=== PATIENT | male | born 1990 | race Caucasian/White ===

== ENCOUNTER 2019-05-01 08:28 | Emergency (ER) | payer SELFPAY ==
[~2019-05-01] VITALS: Ht 177.8 cm; Wt 81.6 kg
--- NOTE | 2019-05-01 08:28 | NUR ---
PT BIBA ALS TO ER BED 10
[2019-05-01 08:31] VITALS: BP 123/81
--- NOTE | 2019-05-01 08:33 | NUR ---
29 y/o M BIBA for seizure. Per EMS, pt cousin heard a thud and witnessed a 2-5 minute tonic/clonic seizure. Per EMS pt has been post-itctal for EMS upon arrival. A&O x4. GCS 15. Vital Signs Stable. Respirations even and unlabored. Per pt he has had one seizure in the past; "a couple years ago". Currently not on any medications. Pt admits to ETOH and Marijuana last night. 20 gauge to left ac established on scene. Waiting for ERMD to evaluate pt. Allergies: NKA Med hx: seizures
[2019-05-01] MEDS ORDERED: NACL 0.9% 500 ML IV ONE (08:45)
[2019-05-01 09:05] LABS: BASOPHILS # (AUTO) 0.1 K/uL (0.00-0.22); EOSINOPHILS % (AUTO) 0.6 % (0.0-4.0); HEMATOCRIT 40.8 % (36-52); HEMOGLOBIN 13.6 g/dL (12.0-18.0); LYMPHOCYTES # (AUTO) 3.1 K/uL (2.0-11.5); LYMPHOCYTES % (AUTO) 43.5 % (20.5-51.1); MEAN CORPUSCULAR HEMOGLOBIN 34 pg (27-31); MEAN CORPUSCULAR HGB CONC 33 g/dL (33-37); MEAN CORPUSCULAR VOLUME 101.1 fL (80-94); MONOCYTES # (AUTO) 0.5 K/uL (0.8-1.0); MONOCYTES % (AUTO) 7.2 % (1.7-9.3); NEUTROPHILS # (AUTO) 3.4 K/uL (1.8-7.7); NEUTROPHILS % (AUTO) 47.7 % (42.2-75.2); PLATELET COUNT (AUTO) 196 K/uL (140-450); RED BLOOD CELL COUNT(AUTO) 4.03 MIL/uL (4.20-6.10); RED CELL DISTRIBUTION WIDTH 12.6 % (11.6-13.7); WHITE BLOOD COUNT (AUTO) 7.1 K/uL (4.8-10.8)
[2019-05-01 09:12] LABS: CARBON DIOXIDE 19.6 mmol/L (21-32); CHLORIDE 95 mmol/L (98-107); CREATININE 1.2 mg/dL (0.7-1.3); GFR ARICAN-AMERICAN 91 mL/min (>90); GLUCOSE 108 mg/dL (74-106); POTASSIUM 3.6 mmol/L (3.5-5.1); SODIUM SERUM 137 mmol/L (136-145); UREA NITROGEN, BLOOD 10 mg/dL (7-18)
--- NOTE | 2019-05-01 09:15 | NUR ---
Dr. Bender evaluating pt at bedside.
[2019-05-01 09:17] LABS: ALBUMIN 4.4 g/dL (3.4-5.0); ASPARTATE AMINOTRANSFERASE 328 U/L (15-37); TOTAL BILIRUBIN 2.8 mg/dL (0.0-1.0)
[2019-05-01] MEDS ORDERED: ONDANSETRON 4 MG/2 ML VIAL IVP ONE (09:25)
[2019-05-01] MEDS ORDERED: LORazepam 2 MG/ML VIAL IVP ONE (09:25)
[2019-05-01] MEDS ORDERED: NACL 0.9% 1,000 ML IV ONE (09:25)
[2019-05-01 09:33] LABS: ACETAMINOPHEN < 0.5 ug/ml (10-30); SALICYLATE < 2.8 mg/dL (2.8-20.0)
--- NOTE | 2019-05-01 10:21 | NUR ---
Pt attempting to provide urine sample.
--- NOTE | 2019-05-01 10:28 | NUR ---
Urine collected and sent to lab
[2019-05-01 10:46] LABS: BARBITURATE, URINE NEG. ng/ml (NEG <=200); BENZODIAZEPINE, URINE NEG. ng/mL (NEG <=200); CANNABINOID, URINE POS. ng/mL (NEG <=50); COCAINE, URINE NEG. ng/mL (NEG <=300); OPIATE, URINE NEG. ng/mL (NEG <=2000); PHENCYCLIDINE SCREEN,URINE NEG. ng/mL (NEG <=25)
--- NOTE | 2019-05-01 10:49 | NUR ---
Pt requesting oral fluids. Dr. Napoleon holman to have ice chips.
--- NOTE | 2019-05-01 11:30 | NUR ---
Pt resting in bed awake and alert. Family at bedside. Will continue to monitor.
[2019-05-01 11:59] VITALS: BP 127/83
--- NOTE | 2019-05-01 11:59 | NUR ---
Patient discharged with v/s stable. Written and verbal after care instructions given and explained. Patient alert, oriented and verbalized understanding of instructions. Ambulatory with steady gait. All questions addressed prior to discharge. ID band removed. Patient advised to follow up with PMD. Rx of Xanax 0.5mg was given. Patient educated on indication of medication including possible reaction and side effects. Opportunity to ask questions provided and answered.
== END 2019-05-01 11:59 | disposition home or self-care (01) ==
LOC: MED 08:28
DX: S00.512A Abrasion of oral cavity, initial encounter (principal); G40.89 Other seizures; X58.XXXA Exposure to other specified factors, initial encounter; Y93.89 Activity, other specified; Y92.89 Other specified places as the place of occurrence of the external cause; Y99.8 Other external cause status
CPT/HCPCS: 36415; 80053; 80305; 85025; 93005; 96374; 96375; 99284; G0480; G0482; J2060; J2405; J7030

== ENCOUNTER 2019-05-17 17:16 | Emergency (ER) | payer SELFPAY ==
[~2019-05-17] VITALS: Ht 190.5 cm; Wt 72.6 kg
--- NOTE | 2019-05-17 17:16 | NUR ---
Patient BIBA ALS, transferred to bed 9. RN evaluating patient at bedside.
[2019-05-17 17:30] VITALS: BP 159/92
--- NOTE | 2019-05-17 17:41 | NUR ---
BIBA FROME HOME FOR POSSIBLE SEIZURE X 30 MINS AGO. PATIENT ALERT,OREITED TO NAME PLACE. FAMILY WITNESS FOR SEIZURE. APPROX 1 MIN, NO FALL. PER EMS IVF 18G LAC. SLIGHTLY BLEEDING AT TOUNGE. MED HX: SEIZURE.
--- NOTE | 2019-05-17 17:44 | NUR ---
Dr. Bender is evaluating the patient at bedside.
--- NOTE | 2019-05-17 17:47 | NUR ---
FAMILY AT BEDSIDE.
[2019-05-17] MEDS ORDERED: MULTIVITAMIN-12 10 ML, THIAMINE 100 MG, FOLIC ACID 1 MG, MAGNESIUM SULFATE 50% 2,000 MG... IV SCH ×10 (17:50→18:03)
[2019-05-17] MEDS ORDERED: LORazepam 2 MG/ML VIAL IVP ONE (17:50)
[2019-05-17 18:20] VITALS: BP 132/89
--- NOTE | 2019-05-17 18:20 | NUR ---
Patient does not wish to proceed with medical care recommended by DR MENESES. Patient given information related to possible complications, up to and including , which could occur as a result of leaving hospital at this time. Patient verbalizes understanding of risks involved leaving against medical advice. Patient has signed AMA form.
== END 2019-05-17 18:20 | disposition left against medical advice (07) ==
LOC: MED 17:16
DX: R56.9 Unspecified convulsions (principal); F17.210 Nicotine dependence, cigarettes, uncomplicated
CPT/HCPCS: 99283; J2060; A9153; J3411; J3475; J3490

== ENCOUNTER 2019-06-14 10:01 | Emergency (ER) | payer OTHER ==
[~2019-06-14] VITALS: Ht 190.5 cm; Wt 78.9 kg
[2019-06-14 10:13] VITALS: BP 153/90
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
[2019-06-14 10:57] LABS: APPEARANCE,URINE HAZY (CLEAR); BILIRUBIN,URINE 1+ (NEGATIVE); BLOOD, URINE NEGATIVE (NEGATIVE); COLOR,URINE YELLOW (YELLOW); LEUKOCYTE ESTERASE ,URINE NEGATIVE (NEGATIVE); NITRITE, URINE NEGATIVE (NEGATIVE); UGLUCOSE NEGATIVE (NEGATIVE)
[2019-06-14 11:01] LABS: BARBITURATE, URINE NEG. ng/ml (NEG <=200); BENZODIAZEPINE, URINE NEG. ng/mL (NEG <=200); CANNABINOID, URINE NEG. ng/mL (NEG <=50); COCAINE, URINE NEG. ng/mL (NEG <=300); OPIATE, URINE NEG. ng/mL (NEG <=2000); PHENCYCLIDINE SCREEN,URINE NEG. ng/mL (NEG <=25)
[2019-06-14 11:03] LABS: BASOPHILS # (AUTO) 0.2 K/uL (0.00-0.22); BASOPHILS % (AUTO) 4.1 % (0.0-2.0); EOSINOPHILS # (AUTO) 0.1 K/uL (0-0.4); EOSINOPHILS % (AUTO) 2.3 % (0.0-4.0); HEMATOCRIT 48.5 % (36-52); HEMOGLOBIN 16.1 g/dL (12.0-18.0); LYMPHOCYTES # (AUTO) 2.5 K/uL (2.0-11.5); LYMPHOCYTES % (AUTO) 48.8 % (20.5-51.1); MEAN CORPUSCULAR HEMOGLOBIN 33 pg (27-31); MEAN CORPUSCULAR HGB CONC 33 g/dL (33-37); MEAN CORPUSCULAR VOLUME 99.1 fL (80-94); MONOCYTES # (AUTO) 0.3 K/uL (0.8-1.0); MONOCYTES % (AUTO) 5.9 % (1.7-9.3); NEUTROPHILS % (AUTO) 38.9 % (42.2-75.2); PLATELET COUNT (AUTO) 285 K/uL (140-450); RED BLOOD CELL COUNT(AUTO) 4.89 MIL/uL (4.20-6.10); RED CELL DISTRIBUTION WIDTH 12.7 % (11.6-13.7); WHITE BLOOD COUNT (AUTO) 5.1 K/uL (4.8-10.8)
[2019-06-14 11:17] LABS: RBC,URINE NONE SEEN /HPF (0-5); WBC,URINE 0-5 /HPF (0-5)
--- NOTE | 2019-06-14 11:30 | NUR ---
PT REMAINS FREE OF ANY COMPLAINTS. PENDING DISPO.
[2019-06-14 11:41] LABS: ALBUMIN 4.1 g/dL (3.4-5.0); CARBON DIOXIDE 30.8 mmol/L (21-32); CREATININE 0.7 mg/dL (0.6-1.3); POTASSIUM 3.8 mmol/L (3.5-5.1); THYROID STIMULATING HORMONE 1.06 uIU/mL (0.34-3.74); TOTAL BILIRUBIN 0.4 mg/dL (0.0-1.0)
[2019-06-14] MEDS: PHENYTOIN 100 MG CAPER PO ONE (12:34)
--- NOTE | 2019-06-14 12:38 | NUR ---
Patient discharged with v/s stable. Written and verbal after care instructions given and explained. Patient verbalized understanding. Ambulatory with steady gait. All questions addressed prior to discharge. Advised to follow up with PMD. PT HAS BEEN MEDICALLY CLEARED BY DR MANCILLA FOR DETOX PROGRAM.
[2019-06-14 12:39] VITALS: BP 148/81
== END 2019-06-14 12:38 | disposition home or self-care (01) ==
LOC: MED 10:01
DX: F10.20 Alcohol dependence, uncomplicated (principal); G40.909 Epilepsy, unspecified, not intractable, without status epilepticus; F17.210 Nicotine dependence, cigarettes, uncomplicated; Z98.890 Other specified postprocedural states; Z71.6 Tobacco abuse counseling; Z02.89 Encounter for other administrative examinations
CPT/HCPCS: 36415; 80053; 80185; 80305; 81001; 84443; 85025; 87086; 99283; G0482